=== PATIENT | female | born 1955 | race Caucasian/White ===

== ENCOUNTER → 2019-04-17 | Outpatient (CLI) | payer MEDICARE ==
--- NOTE | 2019-04-17 08:42 | Diagnostic Imaging Report ---
Lumbar spine, 5 views Clinical indication: Low back pain, radiculopathy Comparison: None Findings: 5 views of the lumbosacral spine were obtained including AP, lateral, bilateral obliques, and lateral cone-down view of the lumbosacral junction. There is no radiographic evidence of acute fracture or subluxation. The vertebral body heights are well-maintained. There is moderate disc space narrowing at L5-S1 with endplate sclerosis. Atrophic facet changes are noted at L4-L5 and L5-S1. There is no evidence of spondylolisthesis or spondylolysis. 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
== END ==
LOC: RAD 07:18
PROVIDERS: ATTEND Internal Medicine
DX: M54.5 Low back pain (principal); M54.16 Radiculopathy, lumbar region
CPT/HCPCS: 72110

== ENCOUNTER 2022-06-22 11:12 | Emergency (ER) | payer MEDICARE ==
[~2022-06-22] VITALS: Ht 165.1 cm; Wt 85.7 kg
[2022-06-22] MEDS ORDERED: OXYMETAZOLINE HCL 0.05% NAS 1 SPRAY BTL STA (11:22)
== END 2022-06-22 12:12 | disposition home or self-care (01) ==
LOC: ER 11:27
DX: R04.0 Epistaxis (principal)
CPT/HCPCS: 99282

== ENCOUNTER 2022-11-01 11:00 | Emergency (ER) | payer MEDICARE ==
[~2022-11-01] VITALS: Ht 165.1 cm; Wt 85.7 kg
[2022-11-01] MEDS ORDERED: ACETAMINOPHEN 325 MG TAB PO ONE (11:15)
[2022-11-01] MEDS ORDERED: ACETAMINOPHEN 325 MG TAB ONE (11:24)
== END 2022-11-01 14:22 | disposition home or self-care (01) ==
LOC: ER 11:07
DX: S02.2XXA Fracture of nasal bones, initial encounter for closed fracture (principal); S05.12XA Contusion of eyeball and orbital tissues, left eye, initial encounter; M79.652 Pain in left thigh; R51.9 Headache, unspecified; W18.2XXA Fall in (into) shower or empty bathtub, initial encounter; Y93.E1 Activity, personal bathing and showering; Y92.89 Other specified places as the place of occurrence of the external cause
CPT/HCPCS: 70450; 70486; 72125; 99283

== ENCOUNTER 2024-07-15 06:55 | Emergency (ER) | payer MEDICARE ==
[~2024-07-15] VITALS: Ht 165.1 cm; Wt 85.7 kg
[2024-07-15 07:07] VITALS: PULSE 67; RESP 16; TEMP 99.2; O2SAT 99
[2024-07-15] MEDS: HYDROCODONE/APAP 7.5MG-325MG 1 EA TAB PO ONE (07:45)
== END 2024-07-15 10:30 | disposition home or self-care (01) ==
LOC: ER 06:59
DX: S82.832A Other fracture of upper and lower end of left fibula, initial encounter for closed fracture (principal); W10.8XXA Fall (on) (from) other stairs and steps, initial encounter; Y93.01 Activity, walking, marching and hiking; Y92.89 Other specified places as the place of occurrence of the external cause; I10 Essential (primary) hypertension; E11.9 Type 2 diabetes mellitus without complications; E78.5 Hyperlipidemia, unspecified; I25.10 Atherosclerotic heart disease of native coronary artery without angina pectoris; Z86.73 Personal history of transient ischemic attack (TIA), and cerebral infarction without residual deficits; Z95.5 Presence of coronary angioplasty implant and graft
CPT/HCPCS: 70450; 72125; 72170; 99283